=== PATIENT | female | born 1975 | race Hispanic/Latino ===

== ENCOUNTER → 2022-11-28 | Outpatient (CLI) | payer OTHER | END | disposition home or self-care (01) | LOC: RAH 09:07 | PROVIDERS: ATTEND Family Medicine | DX: K29.00 Acute gastritis without bleeding (principal); N39.0 Urinary tract infection, site not specified; N23 Unspecified renal colic; R19.5 Other fecal abnormalities; Z87.448 Personal history of other diseases of urinary system | CPT/HCPCS: 76700 ==